=== PATIENT | male | born 2000 | race Caucasian/White ===

== ENCOUNTER 2022-11-23 13:06 | Emergency (ER) | payer BC, MEDICAID, MEDICARE ==
[~2022-11-23] VITALS: Ht 193 cm; Wt 72.8 kg
[2022-11-23 16:54] VITALS: BP 122/71
== END 2022-11-23 16:57 | disposition home or self-care (01) ==
LOC: M ED 13:06
DX: F32.9 Major depressive disorder, single episode, unspecified (principal); F41.9 Anxiety disorder, unspecified; F90.9 Attention-deficit hyperactivity disorder, unspecified type; F95.9 Tic disorder, unspecified; J45.909 Unspecified asthma, uncomplicated; F17.290 Nicotine dependence, other tobacco product, uncomplicated; F12.10 Cannabis abuse, uncomplicated